=== PATIENT | male | born 1960 | race African-American/Black ===

== ENCOUNTER 2017-03-22 08:55 | Inpatient (IN) ==
[2017-03-22 09:40] LABS: Basophils % 0.3 % (0.0-0.8); Eosinophils # 0.1 10*3/uL (0.0-0.87); Eosinophils % 0.6 % (0.00-10.9); Hemoglobin 12.4 GM/DL (14.0-18.0); Immature Granulocytes % 0.3 %; Immature Granulocytes Absolute 0.03 #; Lymphocytes # 0.8 10*3/uL (1.4-4.0); Lymphocytes % 6.8 % (21.2-54.2); Mean Corpuscular HGB Conc 31.8 GM/DL (32-36); Mean Corpuscular Hemoglobin 28 PG (27-34); Mean Corpuscular Volume 88.2 FL (87-102); Mean Platelet Volume 12.9 FL (9.6-12.0); Monocytes # 0.5 10*3/uL (0.11-0.8); Monocytes % 4.5 % (1.7-12.7); Neutrophils # 10.1 10*3/uL (1.4-7.4); Neutrophils % 87.5 % (38.7-73.9); Platelet Count 150 T/CUMM (130-400); Red Blood Count 4.42 MC/CUMM (3.8-5.5); Red Cell Distribution Width 17.2 % (9.3-17.3); White Blood Count 11.5 T/CUMM (4-12)
[2017-03-22 10:03] LABS: Albumin 3.2 G/DL (3.4-5.0); Bilirubin,Total 0.4 MG/DL (0.2-1.0); Calcium 8.4 MG/DL (8.5-10.1); Osmolality,Calculated 302.1 MOS/KG (273-304); Potassium 4.8 MMOL/L (3.5-5.1); Total Protein 6.7 G/DL (6.4-8.3)
[2017-03-22 10:04] LABS: Apearance,Urine CLOUDY (Clear); Bacteria,Urine Many /HPF (Few); Bilirubin,Urine Negative (Negative); Blood, Urine Moderate mg/dL (Negative); Glucose,Urine (UA) >=500 mg/dL (Negative); Ketones,Urine 5 mg/dL (Negative); Mucus,Urine Many /LPF (Occasional); Nitrite,Urine Negative (Negative); Protein,Urine 30 MG/DL; RBC,Urine 6 /HPF (0-4); Urine Color Yellow (Yellow); Urine Specific Gravity 1.011 (1.001-1.035); Urine Urobilinogen < 2.0 EU/DL (0.2-1.0); WBC,Urine 84 /HPF (0-6)
[2017-03-22] MEDS ORDERED: ONDANSETRON 4 MG/2 ML VIAL IV PRN (15:06)
[2017-03-22] MEDS: SODIUM CHLORIDE 0.9% 1,000 ML IV SCH (15:28)
[2017-03-22] MEDS ORDERED: MAGNESIUM HYDROXIDE SUSP 30 ML UDCUP PO ONE (16:50)
[2017-03-22] MEDS ORDERED: BISACODYL 5 MG TABLET PO ONE (16:51)
[2017-03-22] MEDS ORDERED: BISACODYL 10 MG SUPP RECTAL ONE (16:51)
[2017-03-22] MEDS ORDERED: DEXTROSE 50% 25 GM/50 ML VIAL IV PRN (17:06)
[2017-03-22] MEDS ORDERED: GLUCAGON 1 MG VIAL IM PRN (17:06)
[2017-03-22] MEDS ORDERED: SODIUM CHLORIDE 0.9% 2,850 ML IV ONE (17:10)
[2017-03-22] MEDS: LEVOFLOXACIN INJ 500 MG in PREMIX 1 EACH IV SCH (17:33)
[2017-03-22 18:04] LABS: ABG Base Excess -0.8 MMOL/L (-2.5-2.5); ABG HCO3 23.5 MMOL/L (20-26); ABG Oxygen Saturation 94.6 % (95-100); ABG PCO2 37.8 MM HG (35-48); ABG PH 7.412 (7.35-7.45); ABG PO2 68.8 MM HG (80-95); ABG TCO2 24.7 MMOL/L (23-27)
[2017-03-22] MEDS: INSULIN REGULAR 100 UNIT/ML SUBCUT SCH (18:15)
[2017-03-22] MEDS: PIPERACILLIN/TAZOBACTAM 3,375 MG in SODIUM CHLORIDE 0.9% 100 ML IV SCH (18:27)
[2017-03-22] MEDS: PREGABALIN 75 MG CAPSULE PO SCH (21:05)
[2017-03-22] MEDS: ALVIMOPAN 12 MG CAPSULE PO SCH (21:05)
[2017-03-22] MEDS: METOCLOPRAMIDE 10 MG TABLET PO SCH (21:06)
[2017-03-22] MEDS: ALPRAZolam 0.5 MG TABLET PO SCH (21:06)
[2017-03-22] MEDS: diphenhydrAMINE CAP 25 MG CAPSULE PO PRN (21:06)
[2017-03-23] MEDS: PIPERACILLIN/TAZOBACTAM 3,375 MG in SODIUM CHLORIDE 0.9% 100 ML IV SCH ×2 (01:34→10:16)
[2017-03-23] MEDS ORDERED: ZINC OXIDE PASTE 113 GM TUBE TOP PRN (04:31)
[2017-03-23 05:42] LABS: Basophils % 0.4 % (0.0-0.8); Eosinophils # 0.3 10*3/uL (0.0-0.87); Hematocrit 39.3 VOL% (42.0-52.0); Hemoglobin 12.8 GM/DL (14.0-18.0); Immature Granulocytes % 0.2 %; Immature Granulocytes Absolute 0.02 #; Lymphocytes # 1.4 10*3/uL (1.4-4.0); Lymphocytes % 17.3 % (21.2-54.2); Mean Corpuscular HGB Conc 32.6 GM/DL (32-36); Mean Corpuscular Hemoglobin 28 PG (27-34); Mean Corpuscular Volume 86.6 FL (87-102); Mean Platelet Volume 12.9 FL (9.6-12.0); Monocytes # 0.6 10*3/uL (0.11-0.8); Monocytes % 7.1 % (1.7-12.7); Neutrophils # 5.7 10*3/uL (1.4-7.4); Platelet Count 143 T/CUMM (130-400); Red Blood Count 4.54 MC/CUMM (3.8-5.5)
[2017-03-23 06:26] LABS: Albumin 3.2 G/DL (3.4-5.0); Bilirubin,Total 0.8 MG/DL (0.2-1.0); Calcium 8.7 MG/DL (8.5-10.1); Magnesium 2.3 MG/DL (1.8-2.4); Osmolality,Calculated 295.8 MOS/KG (273-304); Risk Ratio 4.76; Thyroid Stimulating Hormone 0.376 uIU/ml (0.358-3.74); Total Protein 6.7 G/DL (6.4-8.3); VLDL CHOLESTEROL 27.4 MG/DL
[2017-03-23] MEDS: INSULIN REGULAR 100 UNIT/ML SUBCUT SCH ×5 (06:52→20:48)
[2017-03-23] MEDS: METOCLOPRAMIDE 10 MG TABLET PO SCH ×4 (09:00→20:47)
[2017-03-23] MEDS: ALVIMOPAN 12 MG CAPSULE PO SCH ×2 (09:00→20:47)
[2017-03-23] MEDS: ARIPiprazole 15 MG TABLET PO SCH (09:00)
[2017-03-23] MEDS: NICOTINE 14 MG/24 HR PATCH TRANSDERM SCH (09:01)
[2017-03-23] MEDS: TAMSULOSIN 0.4 MG CAPSULE PO SCH (09:01)
[2017-03-23] MEDS: MAGNESIUM HYDROXIDE SUSP 30 ML UDCUP PO SCH (09:01)
[2017-03-23] MEDS: PREGABALIN 75 MG CAPSULE PO SCH ×2 (09:01→20:47)
[2017-03-23] MEDS: LISINOPRIL 10 MG TABLET PO SCH (09:02)
[2017-03-23] MEDS: FINASTERIDE 5 MG TABLET PO SCH (09:02)
[2017-03-23] MEDS: ALPRAZolam 0.5 MG TABLET PO SCH ×2 (09:03→20:47)
[2017-03-23] MEDS ORDERED: DEXTROSE 50% 25 GM/50 ML VIAL IV PRN ×2 (09:57→10:07)
[2017-03-23] MEDS ORDERED: GLUCAGON 1 MG VIAL IM PRN ×2 (09:57→10:07)
[2017-03-23] MEDS ORDERED: SODIUM CHLORIDE 0.9% 1,000 ML IV SCH (15:30)
[2017-03-23] MEDS: SODIUM CHLORIDE 0.9% 1,000 ML IV SCH (16:41)
[2017-03-23] MEDS: LEVOFLOXACIN INJ 500 MG in PREMIX 1 EACH IV SCH (16:44)
[2017-03-23] MEDS: diphenhydrAMINE CAP 25 MG CAPSULE PO PRN (20:47)
[2017-03-23] MEDS ORDERED: INSULIN GLARGINE 100 UNIT/ML SUBCUT SCH (21:00)
[2017-03-24] MEDS ORDERED: INSULIN GLARGINE 100 UNIT/ML SUBCUT SCH (08:44)
[2017-03-24 08:48] VITALS: BP 159/78
[2017-03-24] MEDS: INSULIN REGULAR 100 UNIT/ML SUBCUT SCH (08:58)
[2017-03-24] MEDS: METOCLOPRAMIDE 10 MG TABLET PO SCH ×2 (08:59→10:58)
[2017-03-24] MEDS ORDERED: ROSUVASTATIN 20 MG TABLET PO SCH (09:00)
[2017-03-24] MEDS: ALVIMOPAN 12 MG CAPSULE PO SCH (09:00)
[2017-03-24] MEDS: TAMSULOSIN 0.4 MG CAPSULE PO SCH (09:00)
[2017-03-24] MEDS: ARIPiprazole 15 MG TABLET PO SCH (09:00)
[2017-03-24] MEDS: NICOTINE 14 MG/24 HR PATCH TRANSDERM SCH (09:01)
[2017-03-24] MEDS: MAGNESIUM HYDROXIDE SUSP 30 ML UDCUP PO SCH (09:01)
[2017-03-24] MEDS: PREGABALIN 75 MG CAPSULE PO SCH (09:01)
[2017-03-24] MEDS: FINASTERIDE 5 MG TABLET PO SCH (09:02)
[2017-03-24] MEDS: ALPRAZolam 0.5 MG TABLET PO SCH (09:02)
[2017-03-24] MEDS: LISINOPRIL 10 MG TABLET PO SCH (09:02)
[2017-03-24] MEDS: diphenhydrAMINE CAP 25 MG CAPSULE PO PRN (09:09)
[2017-03-24] MEDS ORDERED: cloNIDine 0.1 MG/24 HR PATCH TRANSDERM SCH (11:00)
== END 2017-03-24 12:00 | DRG 872 ==
LOC: N.ED 08:55 → SUATTDRO 10:35 → N.EDINP 10:35 → N.2E 11:49
PROVIDERS: ADMIT Internal Medicine Nephrology; ATTEND Internal Medicine Infectious Disease